=== PATIENT | male | born 1960 | race African-American/Black ===

== ENCOUNTER 2018-03-23 00:11 | Emergency (ER) | payer OTHER ==
[~2018-03-23] VITALS: Ht 167.6 cm; Wt 77.1 kg
[2018-03-23] MEDS ORDERED: NORVASC10 MG (00:21)
[2018-03-23] MEDS ORDERED: LOPRESSOR100 M1 (00:21)
[2018-03-23] MEDS ORDERED: ASPIR 8181 MG (00:22)
[2018-03-23] MEDS ORDERED: SIMVASTATIN40 MG (00:22)
[2018-03-23] MEDS ORDERED: HYDROCHLOROTH12.5 M1 (00:22)
[2018-03-23] MEDS ORDERED: NORVASC5 MG PO (00:36)
[2018-03-23] MEDS ORDERED: LOPRESSOR100 M1 PO (00:36)
[2018-03-23 00:38] LABS: URINE BILIRUBIN NEGATIVE (Negative); URINE BLOOD NEGATIVE (Negative); URINE CLARITY CLEAR; URINE COLOR YELLOW; URINE GLUCOSE-RANDOM NEGATIVE (Negative); URINE KETONES NEGATIVE (Negative); URINE LEUKOCYTES-REFLEX NEGATIVE (Negative); URINE NITRITE-REFLEX NEGATIVE (Negative); URINE PROTEIN NEGATIVE (Negative); URINE SPECIFIC GRAVITY <= 1.005 (1.005-1.030); URINE UROBILINOGEN 0.2 E.U./dl (0.2-1.0)
[2018-03-23 01:09] VITALS: BP 131/79
== END 2018-03-23 01:09 | disposition home or self-care (01) ==
LOC: M.ERS 00:11
PROVIDERS: Nurse Practitioner Family
DX: A64 Unspecified sexually transmitted disease (principal); Z76.0 Encounter for issue of repeat prescription; I10 Essential (primary) hypertension; F17.200 Nicotine dependence, unspecified, uncomplicated